=== PATIENT | male | born 1950 ===

== ENCOUNTER 2020-12-11 12:35 | Inpatient (IN) | payer MEDICARE, OTHER ==
[2020-12-11] MEDS ORDERED: Scopolamine 1.5 mg/72 hour Patch TOP PRN (14:09)
[2020-12-11] MEDS ORDERED: diphenhydrAMINE 50 MG/ML VIAL IVP PRN (14:10)
[2020-12-11] MEDS ORDERED: Ondansetron PF 4 MG/2 ML Vial IVP PRN (14:11)
[2020-12-11 14:50] VITALS: BMI 18.3
[2020-12-11] MEDS: Morphine 2 MG/ML VIAL SLOW IVP SCH (17:20)
[2020-12-12] MEDS: Morphine 2 MG/ML VIAL SLOW IVP SCH ×7 (02:14→21:30)
[2020-12-13] MEDS: Morphine 2 MG/ML VIAL SLOW IVP SCH ×6 (01:30→21:37)
[2020-12-14] MEDS: Morphine 2 MG/ML VIAL SLOW IVP SCH ×6 (01:00→21:36)
[2020-12-14] MEDS: Morphine 2 MG/ML VIAL SLOW IVP PRN ×2 (07:39→08:10)
[2020-12-14] MEDS: Lorazepam 2 MG/ML VIAL SLOW IVP PRN (11:30)
[2020-12-15] MEDS: Morphine 2 MG/ML VIAL SLOW IVP SCH ×6 (01:30→21:00)
[2020-12-15] MEDS: Lorazepam 2 MG/ML VIAL SLOW IVP PRN ×2 (09:10→15:41)
[2020-12-15] MEDS: Morphine 2 MG/ML VIAL SLOW IVP PRN ×4 (10:27→21:05)
[2020-12-16] MEDS: Morphine 2 MG/ML VIAL SLOW IVP SCH ×4 (03:07→12:23)
[2020-12-16 07:33] VITALS: BP 103/55; TEMP 98.2
[2020-12-16] MEDS: Morphine 2 MG/ML VIAL SLOW IVP PRN ×5 (08:30→16:08)
[2020-12-16] MEDS: Lorazepam 2 MG/ML VIAL SLOW IVP PRN ×2 (08:31→12:29)
[2020-12-16] MEDS ORDERED: Lorazepam 2 MG/ML VIAL SLOW IVP PRN (09:49)
[2020-12-16] MEDS ORDERED: Morphine 2 MG/ML VIAL SLOW IVP PRN ×2 (09:49→16:30)
[2020-12-16] MEDS ORDERED: Morphine 2 MG/ML VIAL SLOW IVP SCH (18:00)
== END 2020-12-16 18:23 | disposition expired | DRG 951 ==
LOC: EEVIPCON 12:35 → CSHTELE 12:35
PROVIDERS: ADMIT Internal Medicine; ATTEND Internal Medicine
DX: Z51.5 Encounter for palliative care (principal); A41.9 Sepsis, unspecified organism; L89.154 Pressure ulcer of sacral region, stage 4; N18.6 End stage renal disease; I12.0 Hypertensive chronic kidney disease with stage 5 chronic kidney disease or end stage renal disease; N49.3 Fournier gangrene; E11.22 Type 2 diabetes mellitus with diabetic chronic kidney disease; F03.90 Unspecified dementia, unspecified severity, without behavioral disturbance, psychotic disturbance, mood disturbance, and anxiety; Z99.2 Dependence on renal dialysis; I49.9 Cardiac arrhythmia, unspecified; I46.9 Cardiac arrest, cause unspecified
CPT/HCPCS: 36416; J2060; J2270